=== PATIENT | male | born 1945 | race Two or more races ===

== ENCOUNTER → 2024-01-03 10:05 | Outpatient (REF) | payer OTHER, MEDICAID, SELFPAY | LOC: RAD 10:05 | PROVIDERS: ATTENDING PHYSICIAN Surgery Vascular Surgery; FAMILY PHYSICIAN Internal Medicine | DX: N18.6 End stage renal disease (principal); Z01.818 Encounter for other preprocedural examination | CPT/HCPCS: 93985 ==

== ENCOUNTER 2024-05-04 10:27 | Day surgery (SDC) | payer OTHER, SELFPAY ==
--- NOTE | 2024-05-03 15:25 | PTCARENOTE ---
Patient with ICD, device instructions/guidelines unavailable, Dr. Ward made aware, no further instructions or requests made by Dr. Ward.
[2024-05-04 11:22] LABS: INR 1.02; PT 13.4 Sec (11.4-14.6)
[2024-05-04 11:23] LABS: APTT 38.3 Sec (23.4-35.0)
[2024-05-04 11:36] LABS: Blood Urea Nitrogen 38 mg/dl (9-20); Calcium 8.8 mg/dl (8.4-10.2); Carbon Dioxide 26 mmol/L (22-30); Chloride 101 mmol/L (98-107); Glucose 104 mg/dl (70-99); Potassium 5.1 mmol/L (3.5-5.1); Sodium 133 mmol/L (135-145)
[2024-05-04 11:53] VITALS: BMI 20.7
[2024-05-04 11:55] LABS: Glucose - Point of Care 86 mg/dl (70-99)
[2024-05-04 11:59] VITALS: BP 136/75
[2024-05-04 12:00] LABS: Hematocrit 33.6 % (39.0-52.0); Hemoglobin 11.6 g/dL (13.0-18.0); Mean Corp Hgb Conc. 34.5 g/dL (33.0-37.0); Mean Corpuscular Hgb 35.9 pg (27.0-31.0); Mean Platelet Volume 10.2 fL (7.4-10.4); Platelet Count 98 10^3/uL (130-400); Red Blood Cell Count 3.23 10^6/uL (4.70-6.10); Red Cell Dist. Width 12.8 % (11.5-14.5)
== END 2024-05-04 12:30 | disposition home or self-care (01) ==
LOC: CATH 10:27
PROVIDERS: ATTENDING PHYSICIAN Surgery Vascular Surgery; FAMILY PHYSICIAN Internal Medicine; OTHER PHYSICIAN Internal Medicine Cardiovascular Disease
DX: I12.0 Hypertensive chronic kidney disease with stage 5 chronic kidney disease or end stage renal disease (principal); N18.6 End stage renal disease; E11.22 Type 2 diabetes mellitus with diabetic chronic kidney disease; Z53.8 Procedure and treatment not carried out for other reasons
CPT/HCPCS: 80048; 82962; 85027; 85610; 85730; 86850; 86900; 86901; 93005

== ENCOUNTER 2024-05-18 06:10 | Day surgery (SDC) | payer OTHER, SELFPAY ==
--- NOTE | 2024-05-16 10:33 | VNURNOTE ---
Rec'ed message from Terese Doyle that pt requesting more help at home, needs WC, has HH but unsure of agency name. He is scheduled for AV fistula 05/18. Patient is not active w/[facility] - He is out of service area. Reached out to patient's PCP,
spoke to Yris. Informed her of concerns. She stated WC was ordered in November for him. Their office will reach out to pt and will set up [facility]. Tersee Becerra updated.
[2024-05-18] VITALS (12 sets, daily range): BP systolic 102–124; BP diastolic 45–67; BMI 20.7
[2024-05-18 06:56] LABS: Hematocrit 34.1 % (39.0-52.0); Hemoglobin 11.7 g/dL (13.0-18.0); Mean Corp Hgb Conc. 34.3 g/dL (33.0-37.0); Mean Corpuscular Hgb 36.1 pg (27.0-31.0); Mean Corpuscular Volume 105.2 fL (80.0-94.0); Mean Platelet Volume 10.1 fL (7.4-10.4); Platelet Count 113 10^3/uL (130-400); Red Blood Cell Count 3.24 10^6/uL (4.70-6.10); Red Cell Dist. Width 12.2 % (11.5-14.5); White Blood Cell Count 7.4 10^3/uL (4.8-10.8)
[2024-05-18] MEDS: PERIDEX 0.12% ORAL RINSE 15 ML PO (06:56)
[2024-05-18] MEDS: NSS 500 IV (07:03)
[2024-05-18] MEDS: BACTROBAN NASAL 1 GRAM NASAL (07:03)
--- NOTE | 2024-05-18 07:03 | W.SUR.PREOP ---
Pre-Operative Surgical Note
-
I have examined this patient prior to the performance of the scheduled procedure.
The patient's condition is unchanged from the time of the current History and
Physical and the patient is able to undergo the scheduled procedure.
[2024-05-18 07:05] LABS: Glucose - Point of Care 100 mg/dl (70-99)
[2024-05-18 07:09] LABS: INR 1.13; PT 14.6 Sec (11.4-14.6)
[2024-05-18 07:10] LABS: APTT 39.2 Sec (23.4-35.0)
[2024-05-18 07:19] LABS: Blood Urea Nitrogen 43 mg/dl (9-20); Calcium 8.8 mg/dl (8.4-10.2); Carbon Dioxide 29 mmol/L (22-30); Chloride 97 mmol/L (98-107); Estimated Creatinine Clearance 15 ml/min; Glucose 98 mg/dl (70-99); Potassium 4.7 mmol/L (3.5-5.1); Sodium 134 mmol/L (135-145); eGFR 17.85
--- NOTE | 2024-05-18 09:20 | W.SUR.POST ---
Surgical Immediate Post Op
Note
Pre Op Diagnosis: ESRD
Post Op Diagnosis: ESRD
Procedure Performed: RUE brachiocephalic AV fistula creation
Primary Surgeon: Dakota Iyer MD
Vice President Of Sales: Lorraine Ingram FACILITY COORDINATOR-C
Anesthesia: GETA
Estimated Blood Loss: 10ml
Fluids: See anesthesia flowsheet
Drains/Shunts: N/A
Specimens/Cultures: N/A
Doppler/Duplex/Angio (Y/N): Y
Complications: None
Operative Findings: + Thrill at AVF and palpable +1 radial pulse
--- NOTE | 2024-05-18 09:21 | OR.RPT ---
Operative Report
Operative Report
PROCEDURE DATE: 05/18/2024
Preoperative diagnosis: End-stage renal disease on hemodialysis
Postoperative diagnosis: Same
Procedure: Right upper extremity brachiocephalic arteriovenous fistula creation
Surgeon: Jaylon
Dairy Consultant: REUBEN Ingram, required for all aspects of procedure including assistance with traction/countertraction, following a suture line, assistance with closure.
Complications: None
Anesthesia: General
Indications for procedure:
End-stage renal disease on hemodialysis. Left-sided pacemaker in place. Therefore discussed right upper extremity fistula creation. Risk/benefits/alternatives all fully discussed. Patient understood all wish to proceed.
Description of procedure:
Patient was identified brought to the operating room placed on the table in supine position. After the adequate administration of anesthesia and perioperative antibiotics he was prepped and draped in the standard surgical fashion. A standard
preoperative timeout was undertaken and everybody was in agreement the plan. A transverse incision was made in the proximal volar aspect of the forearm just distal to the antecubital fossa. This was carried through skin subcutaneous tissue. The
cephalic vein was identified and carefully dissected away from surrounding structures and great care to avoid any injury to structures. Any branches were ligated between silk ties and then divided. As such I was able to mobilize a suitable length
of cephalic vein. Once I done this I then deepened my dissection in the medial aspect of the incision site through the fascial layer. The brachial artery was carefully identified and carefully dissected away from surrounding structures take great
care to avoid injury to structures. I passed a vessel loop around approximately. Next I gave the patient 4000 units of intravenous heparin. I then ligated the cephalic vein distally in my field with a silk tie and a clip. I then transected it.
I distended under heparinized saline. It distended very well. I marked the anterior surface under distention to avoid any kinking or twisting. The vein was suitable size but just to be sure I ran a 2.0, 2.5mm and 3 mm dilator through which passed
without any difficulty whatsoever. Next I tightened my double looped vessel loops on the artery proximally and distally. I then made an arteriotomy with 11 blade extended using a Ryan scissor. I spatulated the cephalic vein and sewed an end to
side anastomosis using a running 6-0 Prolene suture. Prior to completing and tying down my suture line I backbled and forebled the [place] artery. Next I released my bulldog clamp on the vein and then released my Vesseloops on the artery. There
was an excellent thrill in the fistula. A couple 6-0 Prolene bridej-lq-adthm type sutures were used to repair a bleeding site at the heel of the anastomosis. There was a palpable pulse in the radial artery at the wrist. At this point I was very
satisfied. I irrigated. I achieved and confirmed full hemostasis. We then closed in layers using 3-0 Vicryl deep dermal layer followed by 4-0 Monocryl subcuticular stitch. Dermabond was applied. The patient tolerated the procedure well.
[2024-05-18 09:29] LABS: Glucose - Point of Care 92 mg/dl (70-99)
== END 2024-05-18 11:33 | disposition home or self-care (01) ==
LOC: CATH 06:10
PROVIDERS: ATTENDING PHYSICIAN Surgery Vascular Surgery; FAMILY PHYSICIAN Internal Medicine; OTHER PHYSICIAN Internal Medicine Cardiovascular Disease
DX: I13.2 Hypertensive heart and chronic kidney disease with heart failure and with stage 5 chronic kidney disease, or end stage renal disease (principal); E11.22 Type 2 diabetes mellitus with diabetic chronic kidney disease; N18.6 End stage renal disease; I50.9 Heart failure, unspecified; Z99.2 Dependence on renal dialysis; Z79.4 Long term (current) use of insulin
CPT/HCPCS: 36821; 80048; 82962; 85027; 85610; 85730; 86850; 86900; 86901; 93005

== ENCOUNTER → 2024-07-04 12:54 | Outpatient (REF) | payer OTHER, SELFPAY | LOC: RAD 12:54 | PROVIDERS: ATTENDING PHYSICIAN Surgery Vascular Surgery; FAMILY PHYSICIAN Chiropractor | DX: N18.6 End stage renal disease (principal); I77.0 Arteriovenous fistula, acquired | CPT/HCPCS: 93990 ==